=== PATIENT | male | born 1965 | race Caucasian/White ===

== ENCOUNTER → 2017-01-17 | Outpatient (REF) | payer OTHER ==
[~2017-01-17] MED LIST: CELE-19 PO; COUM2.5T11 PO; GABA300C3 PO; LYRI75CA PO; PERCOCET PO; TRAM50TA2 PO; TYLE325T5 PO
[2017-01-17 21:33] LABS: ALBUMIN 3.5 GM/DL (3.2-5.2); ALBUMIN/GLOBULIN RATIO 0.97 (1.00-1.93); ALKALINE PHOSPHATASE 139 U/L (45-117); ALT/SGPT 35 U/L (12-78); ANION GAP 9 MEQ/L (8-16); AST/SGOT 10 U/L (15-37); BILIRUBIN,TOTAL 0.4 MG/DL (0.2-1.0); BLOOD UREA NITROGEN 15 MG/DL (7-18); CALCIUM LEVEL 8.3 MG/DL (8.5-10.1); CARBON DIOXIDE LEVEL 32 MEQ/L (21-32); CHLORIDE LEVEL 102 MEQ/L (98-107); CHOLESTEROL LEVEL 136 MG/DL (<200); CREATININE FOR GFR 0.96 MG/DL (0.70-1.30); GLOMERULAR FILTRATION RATE > 60.0 (>56); GLUCOSE, FASTING 142 MG/DL (70-105); POTASSIUM SERUM 4.4 MEQ/L (3.5-5.1); SODIUM LEVEL 143 MEQ/L (136-145); TOTAL PROTEIN 7.1 GM/DL (6.4-8.2); TRIGLYCERIDES LEVEL 108 MG/DL (<150)
== END ==
LOC: M SFHCADAM 14:13
PROVIDERS: ATTEND Physician Assistant Medical
DX: E78.2 Mixed hyperlipidemia (principal); R73.01 Impaired fasting glucose

== ENCOUNTER → 2017-03-27 | Outpatient (CLI) | payer OTHER ==
[~2017-03-27] MED LIST changes: +GABA-282 PO; -GABA300C3 PO
--- NOTE | 2017-03-27 09:16 | REP ---
Clinical: Trauma. Puncture wound. Technique: AP, lateral, bilateral oblique views of the right wrist. Findings: Given history states site of wound along the posterior aspect below the fifth metacarpal head. The carpal bones are intact and there is no evidence for acute fracture or dislocation. No foreign body identified. Incidental note is made of a 3 mm corticated calcification in the subcutaneous tissues overlying the distal ulna which is unrelated and appears chronic/insignificant. Impression: No acute fracture dislocation. No obvious foreign body. Signed by Brent Melo MD 03/27/2017 09:08 A
== END ==
LOC: M ADAMS 08:24
PROVIDERS: ATTEND Family Medicine
DX: S61.531A Puncture wound without foreign body of right wrist, initial encounter (principal); X58.XXXA Exposure to other specified factors, initial encounter; Y92.89 Other specified places as the place of occurrence of the external cause; Y93.89 Activity, other specified; Y99.8 Other external cause status
CPT/HCPCS: 73110; G0463

== ENCOUNTER → 2017-11-18 | Outpatient (REF) | payer OTHER ==
[2017-11-18 12:17] LABS: BASO % 0.4 % (0.0-1.0); EOS # 0.1 10^3/uL (0.0-0.50); EOS % 0.7 % (0.0-3.0); HEMATOCRIT 42.8 % (42.0-52.0); HEMOGLOBIN 14.4 g/dl (14.0-18.0); IMMATURE GRANULOCYTE # 0.1 10^3/uL (0-0); IMMATURE GRANULOCYTE % 0.5 % (0-0); LYMPH # 2.3 10^3/uL (1.5-4.5); LYMPH % 23.4 % (24.0-44.0); MEAN CORPUSCULAR HEMOGLOBIN 30.8 pg (27.0-33.0); MEAN CORPUSCULAR HGB CONC 33.6 g/dl (32.0-36.5); MEAN CORPUSCULAR VOLUME 91.5 fl (80.0-96.0); MONO # 0.6 10^3/uL (0.0-0.8); MONO % 5.9 % (0.0-5.0); NEUTROPHILS # 6.8 10^3/uL (1.8-7.7); NEUTROPHILS % 69.1 % (36.0-66.0); PLATELET COUNT, AUTOMATED 300 10^3/uL (150-450); RED BLOOD COUNT 4.68 10^6/uL (4.30-6.10); RED CELL DISTRIBUTION WIDTH 12.4 % (11.5-14.5); WHITE BLOOD COUNT 9.9 10^3/uL (4.0-10.0)
[2017-11-18 12:36] LABS: ESTIMATED AVERAGE GLUCOSE 140 MG/DL (60-110); HEMOGLOBIN A1c 6.5 %
[2017-11-18 12:38] LABS: ALBUMIN 3.5 GM/DL (3.2-5.2); ALBUMIN/GLOBULIN RATIO 1.03 (1.00-1.93); ALKALINE PHOSPHATASE 130 U/L (45-117); ALT/SGPT 50 U/L (12-78); ANION GAP 8 MEQ/L (8-16); AST/SGOT 19 U/L (7-37); BILIRUBIN,TOTAL 0.5 MG/DL (0.2-1.0); BLOOD UREA NITROGEN 13 MG/DL (7-18); CALCIUM LEVEL 8.5 MG/DL (8.5-10.1); CARBON DIOXIDE LEVEL 29 MEQ/L (21-32); CHLORIDE LEVEL 102 MEQ/L (98-107); CHOLESTEROL LEVEL 133 MG/DL (<200); CHOLESTEROL RISK RATIO 3.594 (<5); CREATININE FOR GFR 0.92 MG/DL (0.70-1.30); GLOMERULAR FILTRATION RATE > 60.0 (>56); GLUCOSE, FASTING 99 MG/DL (70-105); HDL CHOLESTEROL 37 MG/DL (>40); LDL CHOLESTEROL 79.4 MG/DL (<100); NON-HDL-C 96 MG/DL; POTASSIUM SERUM 4.7 MEQ/L (3.5-5.1); SODIUM LEVEL 139 MEQ/L (136-145); TOTAL PROTEIN 6.9 GM/DL (6.4-8.2); TRIGLYCERIDES LEVEL 83 MG/DL (<150)
[2017-11-18 12:45] LABS: TOTAL 25(OH) VITAMIN D 21.2 NG/ML (30.0-100.0)
== END ==
LOC: M SFHCADAM 09:11
DX: E78.2 Mixed hyperlipidemia (principal); R73.01 Impaired fasting glucose
CPT/HCPCS: 84443

== ENCOUNTER → 2018-06-09 | Outpatient (REF) | payer OTHER ==
[2018-06-09 12:49] LABS: BASO % 0.4 % (0.0-1.0); EOS # 0.1 10^3/uL (0.0-0.50); EOS % 1.4 % (0.0-3.0); HEMATOCRIT 41.1 % (42.0-52.0); HEMOGLOBIN 13.9 g/dl (13.5-17.5); IMMATURE GRANULOCYTE % 0.4 % (0-3.0); LYMPH # 2.7 10^3/uL (1.5-4.5); LYMPH % 30.4 % (24.0-44.0); MEAN CORPUSCULAR HEMOGLOBIN 31.3 pg (27.0-33.0); MEAN CORPUSCULAR HGB CONC 33.8 g/dl (32.0-36.5); MEAN CORPUSCULAR VOLUME 92.6 fl (80.0-96.0); MONO # 0.6 10^3/uL (0.0-0.8); MONO % 7.1 % (0.0-5.0); NEUTROPHILS # 5.4 10^3/uL (1.8-7.7); NEUTROPHILS % 60.3 % (36.0-66.0); PLATELET COUNT, AUTOMATED 273 10^3/uL (150-450); RED BLOOD COUNT 4.44 10^6/uL (4.30-6.10); RED CELL DISTRIBUTION WIDTH 12.4 % (11.5-14.5)
[2018-06-09 13:16] LABS: TOTAL 25(OH) VITAMIN D 22.1 NG/ML (30.0-100.0)
[2018-06-09 13:25] LABS: ALBUMIN 3.3 GM/DL (3.2-5.2); ALBUMIN/GLOBULIN RATIO 0.97 (1.00-1.93); ALKALINE PHOSPHATASE 123 U/L (45-117); ALT/SGPT 38 U/L (12-78); ANION GAP 8 MEQ/L (8-16); AST/SGOT 12 U/L (7-37); BILIRUBIN,TOTAL 0.3 MG/DL (0.2-1.0); BLOOD UREA NITROGEN 11 MG/DL (7-18); CALCIUM LEVEL 8.6 MG/DL (8.5-10.1); CARBON DIOXIDE LEVEL 30 MEQ/L (21-32); CHLORIDE LEVEL 105 MEQ/L (98-107); CHOLESTEROL LEVEL 138 MG/DL (<200); CHOLESTEROL RISK RATIO 4.181 (<5); GLOMERULAR FILTRATION RATE > 60.0 (>56); GLUCOSE, FASTING 116 MG/DL (70-100); HDL CHOLESTEROL 33 MG/DL (>40); LDL CHOLESTEROL 80.4 MG/DL (<100); NON-HDL-C 105 MG/DL; POTASSIUM SERUM 4.4 MEQ/L (3.5-5.1); SODIUM LEVEL 143 MEQ/L (136-145); TOTAL PROTEIN 6.7 GM/DL (6.4-8.2); TRIGLYCERIDES LEVEL 123 MG/DL (<150)
[2018-06-09 13:44] LABS: CREATININE, URINE 95.9 MG/DL; MALB URINE SIEMENS < 5.0 MG/L; MAU/CREAT RATIO 5.2 MCG/MG (0.0-30.0)
[2018-06-09 13:53] LABS: ESTIMATED AVERAGE GLUCOSE 143 MG/DL (60-110); HEMOGLOBIN A1c 6.6 %
== END ==
LOC: M SFHCADAM 09:41
DX: E66.01 Morbid (severe) obesity due to excess calories (principal); F17.200 Nicotine dependence, unspecified, uncomplicated; E78.2 Mixed hyperlipidemia; R60.1 Generalized edema; Z68.44 Body mass index [BMI] 60.0-69.9, adult; Z79.899 Other long term (current) drug therapy
CPT/HCPCS: 84443

== ENCOUNTER → 2019-04-26 | Outpatient (REF) | payer MEDICARE ==
[~2019-04-26] MED LIST changes: -CELE-19 PO; +CELE1CAP4 PO; -COUM2.5T11 PO; +COUM2.5T17 PO; -GABA-282 PO; +GABA-843 PO
[2019-04-26 13:21] LABS: BASO % 0.4 % (0.0-1.0); EOS # 0.1 10^3/uL (0.0-0.50); EOS % 1.4 % (0.0-3.0); HEMATOCRIT 42.9 % (42.0-52.0); HEMOGLOBIN 13.9 g/dl (13.5-17.5); LYMPH # 2.8 10^3/uL (1.5-4.5); LYMPH % 28.3 % (24.0-44.0); MEAN CORPUSCULAR HEMOGLOBIN 30.9 pg (27.0-33.0); MEAN CORPUSCULAR HGB CONC 32.4 g/dl (32.0-36.5); MEAN CORPUSCULAR VOLUME 95.3 fl (80.0-96.0); MONO # 0.6 10^3/uL (0.0-0.8); MONO % 5.7 % (0.0-5.0); NEUTROPHILS # 6.4 10^3/uL (1.8-7.7); NEUTROPHILS % 63.8 % (36.0-66.0); PLATELET COUNT, AUTOMATED 298 10^3/uL (150-450)
[2019-04-26 13:31] LABS: ALBUMIN 3.3 GM/DL (3.2-5.2); ALT/SGPT 35 U/L (12-78); BILIRUBIN,TOTAL 0.3 MG/DL (0.2-1.0); BLOOD UREA NITROGEN 13 MG/DL (7-18); CALCIUM LEVEL 8.7 MG/DL (8.5-10.1); CARBON DIOXIDE LEVEL 29 MEQ/L (21-32); CHLORIDE LEVEL 108 MEQ/L (98-107); CHOLESTEROL LEVEL 118 MG/DL (<200); CHOLESTEROL RISK RATIO 3.575 (<5); CREATININE FOR GFR 0.96 MG/DL (0.70-1.30); GLOMERULAR FILTRATION RATE > 60.0 (>56); GLUCOSE, FASTING 171 MG/DL (70-100); HDL CHOLESTEROL 33 MG/DL (>40); LDL CHOLESTEROL 60 MG/DL (<100); NON-HDL-C 85 MG/DL; POTASSIUM SERUM 4.9 MEQ/L (3.5-5.1); SODIUM LEVEL 142 MEQ/L (136-145); TOTAL PROTEIN 6.8 GM/DL (6.4-8.2); TRIGLYCERIDES LEVEL 127 MG/DL (<150)
[2019-04-26 14:22] LABS: MALB URINE SIEMENS 20.1 MG/L; MAU/CREAT RATIO 5.4 MCG/MG (0.0-30.0)
[2019-04-26 14:41] LABS: HEMOGLOBIN A1c 6.2 %
== END ==
LOC: M SFHCADAM 09:06
PROVIDERS: ATTEND Physician Assistant Medical
DX: E11.9 Type 2 diabetes mellitus without complications (principal); E78.2 Mixed hyperlipidemia

== ENCOUNTER → 2019-10-25 | Outpatient (REF) | payer MEDICARE ==
[2019-10-25 13:28] LABS: MALB URINE SIEMENS < 5.0 MG/L; MAU/CREAT RATIO 3.2 MCG/MG (0.0-30.0)
[2019-10-25 13:32] LABS: ALBUMIN 3.4 GM/DL (3.2-5.2); ALT/SGPT 61 U/L (12-78); BILIRUBIN,TOTAL 0.5 MG/DL (0.2-1.0); BLOOD UREA NITROGEN 9 MG/DL (7-18); CALCIUM LEVEL 8.8 MG/DL (8.5-10.1); CARBON DIOXIDE LEVEL 29 MEQ/L (21-32); CHLORIDE LEVEL 106 MEQ/L (98-107); CHOLESTEROL LEVEL 204 MG/DL (<200); CHOLESTEROL RISK RATIO 6.375 (<5); CREATININE FOR GFR 0.96 MG/DL (0.70-1.30); GLOMERULAR FILTRATION RATE > 60.0 (>56); GLUCOSE, FASTING 93 MG/DL (70-100); HDL CHOLESTEROL 32 MG/DL (>40); LDL CHOLESTEROL 152 MG/DL (<100); NON-HDL-C 172 MG/DL; POTASSIUM SERUM 4.7 MEQ/L (3.5-5.1); SODIUM LEVEL 142 MEQ/L (136-145); TOTAL PROTEIN 6.7 GM/DL (6.4-8.2); TRIGLYCERIDES LEVEL 101 MG/DL (<150)
[2019-10-25 13:49] LABS: HEMOGLOBIN A1c 5.7 %
== END ==
LOC: M SFHCADAM 09:08
PROVIDERS: ATTEND Physician Assistant Medical
DX: E11.9 Type 2 diabetes mellitus without complications (principal); E66.01 Morbid (severe) obesity due to excess calories; E78.2 Mixed hyperlipidemia
CPT/HCPCS: 80053; 80061; 82043; 83036; 84443; G0463

== ENCOUNTER 2019-12-15 13:35 | Inpatient (IN) | payer MEDICARE ==
[~2019-12-15] VITALS: Ht 180.3 cm; Wt 174.8 kg
[~2019-12-15 13:35] MED LIST changes: -GABA600T4 PO; -IBUP200C28 PO
[2019-12-15] MEDS ORDERED: GLUCAGON FOR INJ 1 MG VIAL (J1610) SC PRN (13:45)
[2019-12-15] MEDS ORDERED: ALBUTEROL 90 MCG/ACT 8GM HFA INHALER INH PRN (13:45)
[2019-12-15] MEDS ORDERED: GLUCOSE 4 GM CHEW TABLET PO PRN (13:45)
[2019-12-15] MEDS ORDERED: DEXTROSE 50% 50 ML SYRINGE IV PRN (13:45)
[2019-12-15 14:00] VITALS: BP 160/93
--- NOTE | 2019-12-15 14:08 | HPE ---
DATE OF ADMISSION: 12/15/2019 PRINCIPAL DIAGNOSIS: Extensive deep vein thrombosis (DVT) right lower extremity. HISTORY: Dewayne Chawla is a 54-year-old with a past history of a DVT of his right leg, 06/24. He was supposed to be taking Xarelto for fdc anticoagulation. He stopped taking this as well as all of his other medications in September. He was objecting to the cost of these and just stopped taking them. He noticed a week ago his right lower extremity was swollen, red and tender, particularly distally. He was not short of breath. Denied any hemoptysis. He was worked in today in the office and ultrasound confirmed extensive DVT with complete occlusion of the deep veins from popliteal to common femoral vein, nonocclusive thrombus in the profunda femoral vein. Due to the patient's history of noncompliance and the social factors involved, I think it would be safest to admit this patient to start anticoagulation in a supervised setting and have patient and family services (PFS) work with him on his financial limitations. PAST MEDICAL HISTORY: Shows: Tobacco abuse. He is still able to afford his cigarettes. He is morbidly obese with a BMI of 56. He has a history of hypertension. Degenerative disc disease with spinal stenosis at L4-5 and central disc protrusion at L4-5. He had DVT of his right lower extremity 06/24. History of hyperlipidemia. Type 2 diabetes. Asthma. Chronic venous insufficiency. ALLERGIES: 1. PENICILLIN. SURGICAL HISTORY: Dental extractions. Left knee replacement 08/23. HOSPITALIZATIONS: Cellulitis right knee 1999. FAMILY HISTORY: Father of "bone cancer." Probably metastatic prostate cancer, he had Crohn's disease. Mother has type 2 diabetes. His sister has type 2 diabetes. SOCIAL HISTORY: He smokes a pack per day. No exercise program. Moderate alcohol intake. He used to be a whitten, now he is disabled. REVIEW OF SYSTEMS: No epistaxis, rectal bleeding, urinary bleeding, shortness of breath (SOB), cough, wheeze, hemoptysis, fever, chills, night sweats. PHYSICAL EXAMINATION: 392 pounds, body mass index (BMI) 56, 144/80, pulse 96, respiratory rate 18, 98% oxygen saturation. GENERAL APPEARANCE: Morbidly obese, sitting up in no distress. Pupils equal, round and reactive to light. Tympanic membranes and oropharynx benign. Neck no masses. Lungs clear. Heart regular rhythm without murmur. Abdomen obese, nontender, no masses. Extremities without clubbing, cyanosis, or edema. His left lower extremity has venous stasis, trace edema. Right lower extremity has 1+ peripheral edema, tender to palpate with an erythematous, swollen area right medial lower leg. Distal pulses are palpable. LABS: None ordered yet. IMAGING: Ultrasound of the left showed complete occlusion of the deep veins from common femoral to the popliteal vein. IMPRESSION: Recurrent DVT. PLAN: 1. The patient's noncompliance puts him at risk of outpatient treatment. He will be admitted to the medical floor, started on Lovenox (I will confirm with pharmacy the dosing), and warfarin. Warfarin will be less expensive for him than Xarelto, Eliquis, etc. Patient and family services (PFS) will need to get involved and help him with his financial constraints. Risks of untreated medical conditions, including DVT, as well as his diabetes and hyperlipidemia were discussed with the patient in the office today. 2. Type 2 diabetes. He has not taken his medicines in 3 months. Hemoglobin A1c ordered. Sliding scale insulin with coverage. Restart metformin once we assure what his renal function is like. 3. Hyperlipidemia. Restart atorvastatin 40 mg daily. Importance of compliance has been discussed. 4. History of asthma. Albuterol on an as needed basis has been ordered. 5. Spinal stenosis. Continue his gabapentin 600 mg three times a day. 6. Morbid obesity. This complicates his medical care and increases risk of recurrence of the DVT as well as complications from this.
[2019-12-15 14:42] LABS: HEMATOCRIT 44.2 % (42.0-52.0); HEMOGLOBIN 14.4 g/dl (13.5-17.5); MEAN CORPUSCULAR HEMOGLOBIN 31.2 pg (27.0-33.0); MEAN CORPUSCULAR HGB CONC 32.6 g/dl (32.0-36.5); MEAN CORPUSCULAR VOLUME 95.7 fl (80.0-96.0); PLATELET COUNT, AUTOMATED 276 10^3/uL (150-450); RED BLOOD COUNT 4.62 10^6/uL (4.30-6.10); WHITE BLOOD COUNT 8.4 10^3/uL (4.0-10.0)
[2019-12-15 14:52] LABS: INR 1.03; PROTHROMBIN TIME 13.2 SECONDS (11.8-14.0)
[2019-12-15 14:53] LABS: PARTIAL THROMBOPLASTIN TIME 30.2 SECONDS (25.0-38.4)
[2019-12-15] MEDS: ENOXAPARIN 150 MG/ML SYR (J1650) SC SCH (15:02)
[2019-12-15 15:06] LABS: ALBUMIN 3.2 GM/DL (3.2-5.2); ALT/SGPT 32 U/L (12-78); BILIRUBIN,TOTAL 0.4 MG/DL (0.2-1.0); BLOOD UREA NITROGEN 7 MG/DL (7-18); CALCIUM LEVEL 8.5 MG/DL (8.5-10.1); CARBON DIOXIDE LEVEL 29 MEQ/L (21-32); CHLORIDE LEVEL 106 MEQ/L (98-107); CREATININE FOR GFR 0.87 MG/DL (0.70-1.30); GLOMERULAR FILTRATION RATE > 60.0 (>56); GLUCOSE, FASTING 86 MG/DL (70-100); POTASSIUM SERUM 4.2 MEQ/L (3.5-5.1); SODIUM LEVEL 141 MEQ/L (136-145); TOTAL PROTEIN 6.5 GM/DL (6.4-8.2)
[2019-12-15] MEDS ORDERED: GABA600T4 PO ×2 (15:24)
[2019-12-15] MEDS ORDERED: IBUP200C28 PO (15:24)
[2019-12-15] MEDS: GABAPENTIN 300 MG CAP PO SCH ×2 (16:30→20:17)
[2019-12-15] MEDS: HumaLOG INSULIN (NovoLOG) PER UNIT SC SCH ×2 (16:40→20:17)
[2019-12-15 16:43] LABS: CHOLESTEROL LEVEL 227 MG/DL (<200); CHOLESTEROL RISK RATIO 6.485 (<5); HDL CHOLESTEROL 35 MG/DL (>40); LDL CHOLESTEROL 156 MG/DL (<100); NON-HDL-C 192 MG/DL; TRIGLYCERIDES LEVEL 179 MG/DL (<150)
[2019-12-15] MEDS ORDERED: WARFARIN SOD 5 MG TAB PO ONE (17:00)
[2019-12-15 17:03] LABS: HEMOGLOBIN A1c 5.8 %
[2019-12-15] MEDS: ATORVASTATIN 20 MG TAB PO SCH (20:17)
[2019-12-15 22:00] VITALS: BP 143/94
[2019-12-16] MEDS: ENOXAPARIN 150 MG/ML SYR (J1650) SC SCH ×2 (04:11→15:14)
[2019-12-16 06:00] VITALS: BP 114/68
[2019-12-16 06:28] LABS: HEMATOCRIT 41.4 % (42.0-52.0); HEMOGLOBIN 13.7 g/dl (13.5-17.5); MEAN CORPUSCULAR HEMOGLOBIN 31.6 pg (27.0-33.0); MEAN CORPUSCULAR HGB CONC 33.1 g/dl (32.0-36.5); MEAN CORPUSCULAR VOLUME 95.4 fl (80.0-96.0); PLATELET COUNT, AUTOMATED 265 10^3/uL (150-450); RED BLOOD COUNT 4.34 10^6/uL (4.30-6.10); WHITE BLOOD COUNT 7.2 10^3/uL (4.0-10.0)
[2019-12-16 06:36] LABS: INR 1.13; PROTHROMBIN TIME 14.2 SECONDS (11.8-14.0)
[2019-12-16 06:51] LABS: BLOOD UREA NITROGEN 9 MG/DL (7-18); CALCIUM LEVEL 8.5 MG/DL (8.5-10.1); CARBON DIOXIDE LEVEL 28 MEQ/L (21-32); CHLORIDE LEVEL 107 MEQ/L (98-107); CREATININE FOR GFR 0.92 MG/DL (0.70-1.30); GLOMERULAR FILTRATION RATE > 60.0 (>56); GLUCOSE, FASTING 95 MG/DL (70-100); POTASSIUM SERUM 3.8 MEQ/L (3.5-5.1); SODIUM LEVEL 141 MEQ/L (136-145)
[2019-12-16] MEDS: HumaLOG INSULIN (NovoLOG) PER UNIT SC SCH ×4 (07:30→21:00)
--- NOTE | 2019-12-16 08:50 | IPNPDOC ---
Subjective Date Seen The patient was seen on 12/16/19. Subjective Chief Complaint/HPI DVT RLE Events since last encounter Directed admit from PCP office. Has RLE occlusive DVT. patient states pain is manageable. He is currently on Warfarin. INR 1.13. c/o LLE swelling and pain. Constitutional: Denies: Chills, Fever, Night Sweats Pulmonary: Denies: Dyspnea, Cough Cardiovascular: Denies: Chest Pain, Palpitations, Orthopnea, Paroxysmal Noc. Dyspnea, Lt Headedness Gastrointestinal: Denies: Nausea, Vomiting, Abdominal Pain, Diarrhea, Constipation Psych: Reports: Mood Normal; Denies: Depression, Memory Issues Objective Physical Examination General Exam: Positive: Alert, Cooperative, No Acute Distress Neck Exam: Positive: Supple; Negative: JVD, thyromegaly Chest Exam: Positive: Wheezing Heart Exam: Positive: Rate Normal, Regular Rhythm, Normal S1, Normal S2; Negative: Murmurs, Rubs Abdomen Exam: Positive: Normal bowel sounds, Soft; Negative: Tenderness, Hepatospenomegaly Extremity Exam: Positive: Edema (BLE) Psych Exam: Positive: Mental status NL, Mood NL, Oriented x 3 Assessment /Plan Problems (1) Left knee DJD Status: Acute (2) Recurrent deep vein thrombosis (DVT) of right lower extremity Status: Acute Problem Text: Placed on Warfarin due to cost of Xarelto and patient's non-comp liance. INR 1.13. c/o LLE swelling. will eval US. (3) HTN (hypertension) Status: Chronic Response to Treatment: Stable Problem Text: BP stable. (4) Diabetes mellitus Status: Chronic Problem Text: RISS (5) Spinal stenosis Status: Chronic Response to Treatment: Stable Problem Text: continue Gabapentin (6) Morbidly obese Status: Chronic (7) Hyperlipidemia Status: Chronic Problem Text: continue atorvastatin (8) Asthma Status: Chronic Problem Text: continue albuterol prn. mild wheezing today. patient continues to smoke Plan/VTE VTE Prophylaxis Ordered?: Yes VS, I&O, 24H, Fishbone Vital Signs/I&O Vital Signs Date Time Temp Pulse Resp B/P (MAP) Pulse Ox O2 Delivery O2 Flow Rate FiO2 12/16/19 06:00 98.5 68 20 114/68 (83) 97 Room Air I&O- Last 24 Hours up to 6 AM 12/16/19 06:00 Intake Total 3120 ml Balance 3120 ml Laboratory Data 24H LABS Laboratory Tests 2 12/15/19 14:24: Nucleated Red Blood Cells % (auto) 0.0, Prothrombin Time 13.2, Prothromb Time International Ratio 1.03, Activated Partial Thromboplast Time 30.2, Anion Gap 6L, Glomerular Filtration Rate > 60.0, Estimated Mean Plasma Glucose 120H, Hemoglobin A1c 5.8, Calcium Level 8.5, Total Bilirubin 0.4, Aspartate Amino Transf (AST/SGOT) 14, Alanine Aminotransferase (ALT/SGPT) 32, Alkaline Phosphatase 122H, Total Protein 6.5, Albumin 3.2, Albumin/Globulin Ratio 0.97L, Triglycerides Level 179H, Total Cholesterol 227H, LDL Cholesterol 156H, Non-HDL Cholesterol (LDL + VLDL) 192, Total HDL Cholesterol 35L, Cholesterol/HDL Ratio 6.485H 12/15/19 16:21: Bedside Glucose (Misc Panel) 83 12/15/19 19:46: Bedside Glucose (Misc Panel) 126H 12/16/19 05:51: Nucleated Red Blood Cells % (auto) 0.0, Prothrombin Time 14.2H, Prothromb Time International Ratio 1.13, Anion Gap 6L, Glomerular Filtration Rate > 60.0, Calcium Level 8.5 CBC/BMP Laboratory Tests 12/15/19 14:24 12/16/19 05:51 Sujata Parrish [employer] Dec 16, 2019 08:50
[2019-12-16] MEDS ORDERED: FLUBLOK(EGG FREE)(QUAD)INFLUENZA VACC 0.5ML SYRINGE (90682)18YRS&OLDER IM ONE (09:00)
[2019-12-16] MEDS: GABAPENTIN 300 MG CAP PO SCH ×3 (09:40→21:13)
--- NOTE | 2019-12-16 13:27 | REP ---
Duplex extremity venous ultrasound: Left lower extremity. History: Clot in the right leg. Rule out DVT on the left. Findings: The deep veins are anechoic and fully compressible from the groin to the popliteal fossa in the left lower extremity. Color flow imaging is homogeneous. Spectral Doppler interrogation demonstrates intact respiratory variation in flow and normal manual augmentation of flow. There is no evidence of deep vein thrombosis. Impression: Negative left lower extremity duplex venous ultrasound. No evidence of deep vein thrombosis. Electronically Signed by Papa Fry MD 12/16/2019 01:19 P
[2019-12-16 14:00] VITALS: BP 112/61
[2019-12-16] MEDS: WARFARIN SOD 5 MG TAB PO SCH (18:17)
[2019-12-16] MEDS: ATORVASTATIN 20 MG TAB PO SCH (21:13)
[2019-12-16 22:00] VITALS: BP 112/63
[2019-12-17] MEDS: ENOXAPARIN 150 MG/ML SYR (J1650) SC SCH ×2 (03:28→16:06)
[2019-12-17 06:00] VITALS: BP 109/64
[2019-12-17 06:59] LABS: INR 1.47; PROTHROMBIN TIME 17.6 SECONDS (11.8-14.0)
[2019-12-17] MEDS: HumaLOG INSULIN (NovoLOG) PER UNIT SC SCH ×4 (07:30→21:00)
[2019-12-17] MEDS: GABAPENTIN 300 MG CAP PO SCH ×3 (08:01→21:11)
--- NOTE | 2019-12-17 10:37 | IPNPDOC ---
Subjective Date Seen The patient was seen on 12/17/19. Subjective Chief Complaint/HPI Pt this morning is dressed and sitting on the couch in his room. He is irritable and rattling his keys. 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 He states that for a long time he took his Xarelto every other day and did fine with this, he will do this again if he is DC on Xarelto again. We spoke with his insurance co and it was reported to me that his out of pocket expence for Xaretlo will be $110 per month after her meets his deductable for meds, so his first fill will be over $450. He states that he sold a car so that he can pay for this and then in April and washer and dryer will be paid off and he will be able to afford it again in April. Kirsty from [facility] also reports that he will be eligible for pt assistance from [facility] based on his income therefore outpt copays will be covered. Therefore Coumadin as an outpt is a much cheaper option for him. We talked about this and the need for compliance with routine PT, he states that he will do whatever will cost him less, but he isn't pleased to learn that he will need to stay inpt until his INR is above 2, if he is DC home with LOvenox he will face the same financial contraints due to his deductible. He told CDT last night that he had planned to leave the hospital this morning and then come back to go plow, he didn't do this. General: Denies: Fatigue Constitutional: Denies: Chills, Fever Pulmonary: Denies: Dyspnea, Cough Cardiovascular: Denies: Chest Pain, Palpitations Gastrointestinal: Denies: Nausea, Vomiting Psych: Denies: Mood Normal Objective Physical Examination General Exam: Positive: Alert, Cooperative, No Acute Distress Neck Exam: Positive: Supple; Negative: JVD, thyromegaly Chest Exam: Positive: Wheezing Heart Exam: Positive: Rate Normal, Regular Rhythm, Normal S1, Normal S2; Negative: Murmurs, Rubs Abdomen Exam: Positive: Normal bowel sounds, Soft; Negative: Tenderness, Hepatospenomegaly Extremity Exam: Positive: Edema (BLE) Psych Exam: Positive: Mental status NL, Mood NL, Oriented x 3 Assessment /Plan Problems (1) Recurrent deep vein thrombosis (DVT) of right lower extremity Status: Acute Problem Text: 12/17 Pt with very poor insight into prognosis and potential for complication assoc with his current condition, he makes states like "you are ref using to provide care", "you are holding me here against my will" He has a h/o of noncompliance with medication and failure to report this to the office. He admits that he will only take his Xarelto every other day due lessen the cost of this so therefore I do not believe this is his best option, I presented this to him. I recommended staying in the hospital until his INR >2, then dc home on PO warfarin, he is not pleased but for now is agreeable. I foresee further issues with compliance and therefore complications regarding this due to his noncompliance and poor insight. 12/16 Placed on Warfarin due to cost of Xarelto and patient's non-compliance. INR 1.13. c/o LLE swelling. will eval US. (2) Left knee DJD Status: Acute (3) HTN (hypertension) Status: Chronic Response to Treatment: Stable Problem Text: BP stable. (4) Diabetes mellitus Status: Chronic Problem Text: RISS (5) Spinal stenosis Status: Chronic Response to Treatment: Stable Problem Text: continue Gabapentin (6) Morbidly obese Status: Chronic (7) Hyperlipidemia Status: Chronic Problem Text: continue atorvastatin (8) Asthma Status: Chronic Problem Text: continue albuterol prn. mild wheezing today. patient continues to smoke Plan/VTE VTE Prophylaxis Ordered?: Yes VS, I&O, 24H, Fishbone Vital Signs/I&O Vital Signs Date Time Temp Pulse Resp B/P (MAP) Pulse Ox O2 Delivery O2 Flow Rate FiO2 12/17/19 06:00 98.6 70 20 109/64 (79) 96 Room Air I&O- Last 24 Hours up to 6 AM 12/17/19 05:59 Intake Total 3360 ml Balance 3360 ml Laboratory Data 24H LABS Laboratory Tests 2 12/16/19 11:44: Bedside Glucose (Misc Panel) 90 12/16/19 16:40: Bedside Glucose (Misc Panel) 122H 12/16/19 20:16: Bedside Glucose (Misc Panel) 137H 12/17/19 06:21: Prothrombin Time 17.6H, Prothromb Time International Ratio 1.47 2/7/20 07:30: Bedside Glucose (Misc Panel) 113H JUNIOR SAINZ PA-C Dec 17, 2019 10:37
[2019-12-17 14:00] VITALS: BP 111/65
[2019-12-17] MEDS: WARFARIN SOD 5 MG TAB PO SCH (16:06)
[2019-12-17] MEDS: ATORVASTATIN 20 MG TAB PO SCH (21:11)
[2019-12-17 22:00] VITALS: BP 109/66
[2019-12-18 06:00] VITALS: BP 112/66
[2019-12-18] MEDS: ENOXAPARIN 150 MG/ML SYR (J1650) SC SCH ×2 (06:13→17:00)
[2019-12-18 06:59] LABS: INR 1.56; PROTHROMBIN TIME 18.4 SECONDS (11.8-14.0)
[2019-12-18] MEDS: HumaLOG INSULIN (NovoLOG) PER UNIT SC SCH ×4 (07:30→21:00)
[2019-12-18] MEDS: GABAPENTIN 300 MG CAP PO SCH ×3 (08:06→21:09)
[2019-12-18 14:00] VITALS: BP 132/77
--- NOTE | 2019-12-18 15:09 | IPNPDOC ---
Subjective Date Seen The patient was seen on 12/18/19. Subjective Chief Complaint/HPI Mr. Chawla really wants to go home today. He is upset that we didn't titrate his warfarin as an outpatient. He admits he didn't take his Xarelto b/c he couldn't afford it based on his high deductible, but he felt he would be able to afford the Lovenox. He is in some denial with the danger of his situation and the risk of a PE saying "it was three times worse last time and I didn't then." He is agreeable to staying through tomorrow, but then he plans on going home with or without a discharge. General: Reports: Normal Appetite Pulmonary: Denies: Dyspnea, Cough, Pleuritic Chest Pain Cardiovascular: Reports: Edema (R>L); Denies: Chest Pain, Palpitations Objective Physical Examination General Exam: Positive: Alert, No Acute Distress (sitting in a chair eating a pizza when I entered the room); Negative: Cooperative Eye Exam: Positive: Conjunctiva & lids normal; Negative: Sclera icteric ENT Exam: Positive: Mucous membr. moist/pink Neck Exam: Positive: Supple; Negative: Lymphadenopathy Chest Exam: Positive: Clear to auscultation, Diminished Heart Exam: Positive: Rate Normal, Regular Rhythm, Normal S1, Normal S2; Negative: Murmurs, Rubs Abdomen Exam: Positive: Normal bowel sounds, Soft; Negative: Tenderness, Hepatospenomegaly Extremity Exam: Positive: Edema (BLE, R>L) Psych Exam: Positive: Mental status NL, Oriented x 3 Assessment /Plan Problems (1) Recurrent deep vein thrombosis (DVT) of right lower extremity Status: Acute Problem Specific Plan: Repeat Labs Problem Text: 12/18 - His insight remains poor. Today he was focused on why his warfarin wasn't titrated in the office setting. I reinforced that he will need to come in for regular INR checks once he is discharged. His INR is up to 1.56 from 1.47. I ordered 10mg rather than the 5mg he has been getting tonight to try to expedite his INR becoming therapeutic by tomorrow. Will monitor. 12/17 Pt with very poor insight into prognosis and potential for complication assoc with his current condition, he makes statements like "you are refusing to provide care", "you are holding me here against my will" He has a h/o of noncompliance with medication and failure to report this to the office. He admits that he will only take his Xarelto every other day due lessen the cost of this so therefore I do not believe this is his best option, I presented this to him. I recommended staying in the hospital until his INR >2, then dc home on PO warfarin, he is not pleased but for now is agreeable. I foresee further issues with compliance and therefore complications regarding this due to his noncompliance and poor insight. 2/6 Placed on Warfarin due to cost of Xarelto and patient's non-compliance. INR 1.13. c/o LLE swelling. will eval US. (2) Diabetes mellitus Status: Chronic Problem Text: He is nearing discharge and his renal function is stable. I will resume his metformin at this time. (3) Cigarette nicotine dependence Status: Chronic Discussed With: Nurse, Patient Problem Text: He is pre-contemplative with regards to change. I suspect that his nicotine dependence is a part of why he is so antsy to get out of here. Patches were offered but he declined. (4) Asthma Status: Chronic Problem Text: Continue albuterol prn. His lungs were clear today. He continues to smoke and has no desire to change. (5) HTN (hypertension) Status: Chronic Response to Treatment: Stable Problem Text: BP stable. (6) Spinal stenosis Status: Chronic Response to Treatment: Stable Problem Text: Continue Gabapentin (7) Morbidly obese Status: Chronic Response to Treatment: Progressing Problem Text: This complicates most of his medical conditions certainly including the DVTs currently admitted for. (8) Hyperlipidemia Status: Chronic Problem Text: continue atorvastatin (9) Left knee DJD Status: Acute Plan/VTE VTE Prophylaxis Ordered?: Yes (Lovenox, warfarin) Plan Anticipated Discharge: Home VS, I&O, 24H, Fishbone Vital Signs/I&O Vital Signs Date Time Temp Pulse Resp B/P (MAP) Pulse Ox O2 Delivery O2 Flow Rate FiO2 12/18/19 14:00 97.6 67 18 132/77 (95) 95 Room Air I&O- Last 24 Hours up to 6 AM0 12/18/19 05:59 Intake Total 2691 ml Output Total 0 ml Balance 2691 ml Laboratory Data 24H LABS Laboratory Tests 2 12/17/19 16:24: Bedside Glucose (Misc Panel) 87 12/17/19 20:34: Bedside Glucose (Misc Panel) 106H 12/18/19 05:54: Prothrombin Time 18.4H, Prothromb Time International Ratio 1.56 12/18/19 06:01: Bedside Glucose (Misc Panel) 115H 12/18/19 11:50: Bedside Glucose (Misc Panel) 116H Rickey Silverman MD Dec 18, 2019 3:09 pm
[2019-12-18] MEDS ORDERED: WARFARIN SOD 5 MG TAB PO ONE (17:00)
[2019-12-18] MEDS: ATORVASTATIN 20 MG TAB PO SCH (21:09)
[2019-12-18 22:00] VITALS: BP 112/90
[2019-12-19] MEDS: ENOXAPARIN 150 MG/ML SYR (J1650) SC SCH (05:31)
[2019-12-19 06:00] VITALS: BP 112/79
[2019-12-19 07:00] LABS: HEMATOCRIT 39.7 % (42.0-52.0); HEMOGLOBIN 13.1 g/dl (13.5-17.5); MEAN CORPUSCULAR HEMOGLOBIN 31.5 pg (27.0-33.0); MEAN CORPUSCULAR VOLUME 95.4 fl (80.0-96.0); PLATELET COUNT, AUTOMATED 244 10^3/uL (150-450); RED BLOOD COUNT 4.16 10^6/uL (4.30-6.10); WHITE BLOOD COUNT 7.3 10^3/uL (4.0-10.0)
[2019-12-19 07:18] LABS: INR 2.09; PROTHROMBIN TIME 23.3 SECONDS (11.8-14.0)
[2019-12-19] MEDS: HumaLOG INSULIN (NovoLOG) PER UNIT SC SCH (07:30)
[2019-12-19 07:34] LABS: BLOOD UREA NITROGEN 16 MG/DL (7-18); CALCIUM LEVEL 8.3 MG/DL (8.5-10.1); CARBON DIOXIDE LEVEL 30 MEQ/L (21-32); CHLORIDE LEVEL 106 MEQ/L (98-107); CREATININE FOR GFR 0.83 MG/DL (0.70-1.30); GLOMERULAR FILTRATION RATE > 60.0 (>56); GLUCOSE, FASTING 126 MG/DL (70-100); POTASSIUM SERUM 3.7 MEQ/L (3.5-5.1); SODIUM LEVEL 140 MEQ/L (136-145)
[2019-12-19] MEDS ORDERED: metFORMIN (GLUCOPHAGE) 500 MG TAB PO SCH (08:00)
[2019-12-19] MEDS: GABAPENTIN 300 MG CAP PO SCH (08:45)
--- NOTE | 2019-12-19 11:03 | DS.PDOC ---
Discharge Summary General Date of Admission Dec 17, 2019 at 10:28 Date of Discharge 12/19/2019 Primary Care Physician: Anuj Brown MD Attending Physician: Rickey Silverman MD Discharge Summary ADMITTING DIAGNOSES: 1. Recurrent DVT, right lower extremity. 2. Medical noncompliance presenting risks to the patient. 3. Type 2 diabetes, currently not taking any of his medications. 4. Hyperlipidemia, currently not taking his atorvastatin. 5. Asthma. 6. Spinal stenosis. 7. Morbid obesity with a BMI of 53. DISCHARGE DIAGNOSES: 1. Right lower extremity DVT, recurrent. 2. Type 2 diabetes. 3. Hyperlipidemia. 4. Asthma. 5. Tobacco use, ongoing, precontemplative. 6. Spinal stenosis. 7. Morbid obesity. 8. Ongoing concerns for medical noncompliance and financial difficulties. PROCEDURES PERFORMED DURING STAY: None. ADMISSION HISTORY: Mr. Chawla presented to his primary care physician's office with a one-week history of right lower extremity that is swollen and red. He had stopped taking his Xarelto 2-3 months ago because he felt the medications were too expensive. Please see the admission history and physical for the remaining details. HOSPITAL COURSE: Mr Chawla was directly admitted to the hospital after an ultrasound ordered through the office showed that he had a right lower extremity DVT. He had stopped taking his Xarelto 2-3 months before this because of concerns about the cost. Because of this, and other instances of known medical compliance, it was determined that he would be started on warfarin because it is cheaper, however, he would be fully anticoagulated in the controlled setting of the hospital. His INR became therapeutic after total of 20 mg of warfarin were given over three separate doses. I continued him on 5 mg daily. The patient was extensively counseled during the admission on the importance of regular follow- up for management of his INR. He understands that this is a condition of his using the less expensive medication. It should be noted that he threatened to leave the hospital AGAINST MEDICAL ADVICE every single day of this admission, but ultimately did not do so. 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 When this was addressed with him he continues to say "not going to happen, I'm not going to let it happen." He seems to think that he has control over whether a DVT would embolize to his lungs. DISCHARGE CONDITION: Stable. FOLLOW-UP: He was instructed to schedule follow-up with his primary care provider on 12/22 or 12/23 for repeat INR check. He will need to call the office on Friday in order to do this. DIET: Consistent carbohydrates. ACTIVITY: As tolerated. DISCHARGE MEDICATIONS: Please see below. ALLERGIES: Please see below. LABORATORY DATA: Please see below. IMAGING: Bilateral lower extremity DVT duplex venous ultrasounds. DISCHARGE INSTRUCTIONS: 1. Patient needs to call the clinic on Friday to get an appointment for repeat INR check. 2. He was clearly instructed to take 5 mg of warfarin every evening at around 5 PM. ITEMS TO FOLLOWUP ON ON OUTPATIENT: 1. If medical noncompliance continues to be an issue with this patient, I would suggest considering the option of a Edcouch filter. TIME SPENT ON DISCHARGE: About 20 minutes. Vital Signs/I&Os Vital Signs Date Time Temp Pulse Resp B/P (MAP) Pulse Ox O2 Delivery O2 Flow Rate FiO2 12/19/19 06:00 98.4 61 18 112/79 (90) 96 Room Air I&O- Last 24 Hours up to 6 AM 12/19/19 06:00 Intake Total 1780 ml Balance 1780 ml Laboratory Data Labs 24H Laboratory Tests 2 12/18/19 11:50: Bedside Glucose (Misc Panel) 116H 12/18/19 16:47: Bedside Glucose (Misc Panel) 149H 12/18/19 21:12: Bedside Glucose (Misc Panel) 106H 12/19/19 06:10: Nucleated Red Blood Cells % (auto) 0.0, Prothrombin Time 23.3H, Prothromb Time International Ratio 2.09, Anion Gap 4L, Glomerular Filtration Rate > 60.0, Calcium Level 8.3L CBC/BMP Laboratory Tests 12/19/19 06:10 FSBS Laboratory Tests Test 12/18/19 11:50 12/18/19 16:47 12/18/19 21:12 Range/Units Bedside Glucose (Misc Panel) 116 149 106 70-105 MG/DL Discharge Medications Scheduled Atorvastatin Calcium (Atorvastatin Calcium) 20 Mg Tablet, 40 MG PO QHS Gabapentin (Gabapentin) 600 Mg Tablet, 600 MG PO BID, (Reported) Metformin HCl (Glucophage) 500 Mg Tablet, 500 MG PO BID@,18 Warfarin Sodium (Coumadin) 5 Mg Tablet, 5 MG PO DAILY@17 Scheduled PRN Gabapentin (Gabapentin) 600 Mg Tablet, 600 MG PO DAILY PRN for PAIN, (Reported) Allergies Coded Allergies: Penicillins (Verified Allergy, Severe, ANAPHYLAXIS, 12/15/19) Rickey Silverman MD Dec 19, 2019 11:03
[2019-12-19] MEDS ORDERED: GLUC500T PO (11:08)
[2019-12-19] MEDS ORDERED: COUM1TAB17 PO (11:08)
[2019-12-19] MEDS ORDERED: ATOR1TAB21 PO (11:08)
== END 2019-12-19 11:40 | disposition home or self-care (01) | DRG 300 ==
LOC: M MSPAV 13:53 → OBSVTOIN 12-17 10:28 → INTOOBSV 12-17 10:28
PROVIDERS: ADMIT Family Medicine; ATTEND Family Medicine
DX: I82.431 Acute embolism and thrombosis of right popliteal vein (principal); Z68.43 Body mass index [BMI] 50.0-59.9, adult; I82.411 Acute embolism and thrombosis of right femoral vein; Z91.14 Patient's other noncompliance with medication regimen; F17.210 Nicotine dependence, cigarettes, uncomplicated; E66.01 Morbid (severe) obesity due to excess calories; I10 Essential (primary) hypertension; E78.5 Hyperlipidemia, unspecified; E11.9 Type 2 diabetes mellitus without complications; J45.909 Unspecified asthma, uncomplicated; Z88.0 Allergy status to penicillin; Z96.652 Presence of left artificial knee joint; M51.36 Other intervertebral disc degeneration, lumbar region

== ENCOUNTER → 2019-12-15 | Outpatient (CLI) | payer MEDICARE ==
[~2019-12-15] MED LIST changes: +GABA600T4 PO; +IBUP200C28 PO
--- NOTE | 2019-12-15 13:35 | REP ---
Right lower extremity deep vein duplex ultrasound: There is occlusive thrombus extending from the popliteal vein to the common femoral vein. There is nonocclusive thrombus in the profunda femoral vein. Impression: Complete occlusion of the deep veins from the popliteal vein to the common femoral vein. Nonocclusive thrombus in the profunda femoral vein. Electronically Signed by Fede Smith MD 12/15/2019 01:26 P
== END ==
LOC: M RAD 12:28
PROVIDERS: ATTEND Family Medicine
DX: I82.431 Acute embolism and thrombosis of right popliteal vein (principal); I82.411 Acute embolism and thrombosis of right femoral vein; M79.89 Other specified soft tissue disorders

== ENCOUNTER → 2020-05-02 | Outpatient (REF) | payer MEDICARE ==
[~2020-05-02] MED LIST changes: +ATOR1TAB21 PO; +COUM1TAB17 PO; +GABA600T4 PO; +GLUC500T PO; +IBUP200C28 PO
[2020-05-02 16:05] LABS: BASO % 0.5 % (0.0-1.0); EOS # 0.1 10^3/uL (0.0-0.5); EOS % 1.1 % (0.0-3.0); HEMATOCRIT 44.9 % (42.0-52.0); HEMOGLOBIN 14.4 g/dl (13.5-17.5); LYMPH # 2.4 10^3/uL (1.5-5.0); LYMPH % 29.8 % (24.0-44.0); MEAN CORPUSCULAR HGB CONC 32.1 g/dl (32.0-36.5); MEAN CORPUSCULAR VOLUME 96.6 fl (80.0-96.0); MONO # 0.5 10^3/uL (0.0-0.8); MONO % 6.4 % (0.0-5.0); NEUTROPHILS # 4.9 10^3/uL (1.5-8.5); NEUTROPHILS % 61.5 % (36.0-66.0); PLATELET COUNT, AUTOMATED 295 10^3/uL (150-450); RED BLOOD COUNT 4.65 10^6/uL (4.30-6.10)
[2020-05-02 16:26] LABS: HEMOGLOBIN A1c 6.1 %
[2020-05-02 16:36] LABS: ALBUMIN 3.3 GM/DL (3.2-5.2); ALT/SGPT 31 U/L (12-78); BILIRUBIN,TOTAL 0.3 MG/DL (0.2-1.0); BLOOD UREA NITROGEN 16 MG/DL (7-18); CALCIUM LEVEL 8.8 MG/DL (8.5-10.1); CARBON DIOXIDE LEVEL 29 MEQ/L (21-32); CHLORIDE LEVEL 106 MEQ/L (98-107); CHOLESTEROL LEVEL 164 MG/DL (<200); CHOLESTEROL RISK RATIO 4.555 (<5); GLOMERULAR FILTRATION RATE > 60.0 (>56); GLUCOSE, FASTING 121 MG/DL (70-100); HDL CHOLESTEROL 36 MG/DL (>40); LDL CHOLESTEROL 100 MG/DL (<100); NON-HDL-C 128 MG/DL; POTASSIUM SERUM 4.7 MEQ/L (3.5-5.1); SODIUM LEVEL 141 MEQ/L (136-145); TOTAL PROTEIN 6.7 GM/DL (6.4-8.2); TRIGLYCERIDES LEVEL 140 MG/DL (<150)
[2020-05-02 16:41] LABS: CREATININE, URINE 91.3 MG/DL; MALB URINE SIEMENS < 5.0 MG/L; MAU/CREAT RATIO 5.4 MCG/MG (0.0-30.0)
== END ==
LOC: M SFHCADAM 08:19
PROVIDERS: ATTEND Physician Assistant Medical
DX: E11.9 Type 2 diabetes mellitus without complications (principal); E66.01 Morbid (severe) obesity due to excess calories; E78.2 Mixed hyperlipidemia
CPT/HCPCS: 80053; 80061; 82043; 83036; 84443; 85025; G0463

== ENCOUNTER → 2020-10-26 | Outpatient (REF) | payer MEDICARE ==
[2020-10-26 13:16] LABS: INR 1.81; PROTHROMBIN TIME 21.4 SECONDS (12.5-14.3)
[2020-10-26 14:27] LABS: ALBUMIN 3.4 GM/DL (3.2-5.2); ALT/SGPT 40 U/L (12-78); BILIRUBIN,TOTAL 0.3 MG/DL (0.2-1.0); BLOOD UREA NITROGEN 13 MG/DL (7-18); CALCIUM LEVEL 8.6 MG/DL (8.5-10.1); CARBON DIOXIDE LEVEL 24 MEQ/L (21-32); CHLORIDE LEVEL 106 MEQ/L (98-107); CHOLESTEROL LEVEL 124 MG/DL (<200); CHOLESTEROL RISK RATIO 3.875 (<5); CREATININE FOR GFR 0.93 MG/DL (0.70-1.30); GLOMERULAR FILTRATION RATE > 60.0 (>56); GLUCOSE, FASTING 157 MG/DL (70-100); HDL CHOLESTEROL 32 MG/DL (>40); LDL CHOLESTEROL 70 MG/DL (<100); NON-HDL-C 92 MG/DL; POTASSIUM SERUM 4.2 MEQ/L (3.5-5.1); SODIUM LEVEL 139 MEQ/L (136-145); TOTAL PROTEIN 6.6 GM/DL (6.4-8.2); TRIGLYCERIDES LEVEL 110 MG/DL (<150)
[2020-10-26 15:23] LABS: HEMOGLOBIN A1c 5.7 %
== END ==
LOC: M SFHCADAM 08:29
PROVIDERS: ATTEND Physician Assistant Medical
DX: I82.409 Acute embolism and thrombosis of unspecified deep veins of unspecified lower extremity (principal); E11.9 Type 2 diabetes mellitus without complications; Z79.01 Long term (current) use of anticoagulants

== ENCOUNTER → 2021-05-10 | Outpatient (REF) | payer MEDICARE ==
[~2021-05-10] MED LIST changes: +GABA-282 PO; -GABA-843 PO
[2021-05-10 12:55] LABS: BASO % 0.5 % (0.0-1.0); EOS # 0.1 10^3/uL (0.0-0.5); HEMATOCRIT 41.8 % (42.0-52.0); HEMOGLOBIN 13.8 g/dl (13.5-17.5); LYMPH # 1.8 10^3/uL (1.5-5.0); LYMPH % 23.6 % (24.0-44.0); MEAN CORPUSCULAR HEMOGLOBIN 31.9 pg (27.0-33.0); MEAN CORPUSCULAR VOLUME 96.5 fl (80.0-96.0); MONO # 0.6 10^3/uL (0.0-0.8); MONO % 7.6 % (2.0-8.0); NEUTROPHILS # 5.2 10^3/uL (1.5-8.5); NEUTROPHILS % 66.9 % (36.0-66.0); PLATELET COUNT, AUTOMATED 294 10^3/uL (150-450); RED BLOOD COUNT 4.33 10^6/uL (4.30-6.10); WHITE BLOOD COUNT 7.8 10^3/uL (4.0-10.0)
[2021-05-10 13:14] LABS: HEMOGLOBIN A1c 5.7 %
[2021-05-10 13:45] LABS: ALT/SGPT 40 U/L (12-78); BILIRUBIN,TOTAL 0.4 MG/DL (0.2-1.0); BLOOD UREA NITROGEN 7 MG/DL (7-18); CALCIUM LEVEL 8.3 MG/DL (8.5-10.1); CARBON DIOXIDE LEVEL 28 MEQ/L (21-32); CHLORIDE LEVEL 104 MEQ/L (98-107); CREATININE FOR GFR 0.87 MG/DL (0.70-1.30); GLOMERULAR FILTRATION RATE > 60.0 (>56); GLUCOSE, FASTING 94 MG/DL (70-100); POTASSIUM SERUM 4.7 MEQ/L (3.5-5.1); SODIUM LEVEL 137 MEQ/L (136-145); TRIGLYCERIDES LEVEL 103 MG/DL (<150)
[2021-05-10 13:46] LABS: ALBUMIN 3.4 GM/DL (3.2-5.2); CHOLESTEROL LEVEL 102 MG/DL (<200); HDL CHOLESTEROL 33 MG/DL (>40); LDL CHOLESTEROL 48 MG/DL (<100); NON-HDL-C 69 MG/DL; TOTAL PROTEIN 6.5 GM/DL (6.4-8.2)
== END ==
LOC: M SFHCADAM 07:43
PROVIDERS: ATTEND Physician Assistant
DX: E78.2 Mixed hyperlipidemia (principal); E11.9 Type 2 diabetes mellitus without complications; E66.01 Morbid (severe) obesity due to excess calories; F17.200 Nicotine dependence, unspecified, uncomplicated; I10 Essential (primary) hypertension; I82.409 Acute embolism and thrombosis of unspecified deep veins of unspecified lower extremity; Z79.01 Long term (current) use of anticoagulants
CPT/HCPCS: 80053; 80061; 83036; 84443; 85025; 85610; G0463

== ENCOUNTER 2021-07-02 13:49 | Emergency (ER) | payer MEDICARE ==
[~2021-07-02] VITALS: Ht 180.3 cm; Wt 180.0 kg
[2021-07-02] MEDS ORDERED: EPIP0.3I2 IM (14:40)
[2021-07-02 15:28] VITALS: BP 125/73
== END 2021-07-02 15:33 | disposition home or self-care (01) ==
LOC: M ED 13:49
DX: T63.441A Toxic effect of venom of bees, accidental (unintentional), initial encounter (principal); I10 Essential (primary) hypertension; E78.5 Hyperlipidemia, unspecified; E66.9 Obesity, unspecified; Z88.0 Allergy status to penicillin; Z79.899 Other long term (current) drug therapy; F17.200 Nicotine dependence, unspecified, uncomplicated

== ENCOUNTER → 2021-07-17 | Outpatient (REF) | payer MEDICARE ==
[~2021-07-17] MED LIST changes: +EPIP0.3I2 IM
[2021-07-17 13:02] LABS: INR 2.31; PROTHROMBIN TIME 25.7 SECONDS (12.7-14.5)
== END ==
LOC: M SFHCADAM 09:25
PROVIDERS: ATTEND Physician Assistant Medical
DX: Z79.01 Long term (current) use of anticoagulants (principal)

== ENCOUNTER → 2022-05-15 | Outpatient (REF) | payer MEDICARE ==
[2022-05-15 12:36] LABS: HEMATOCRIT 42.5 % (42.0-52.0); HEMOGLOBIN 14.3 g/dl (13.5-17.5); MEAN CORPUSCULAR HEMOGLOBIN 32.2 pg (27.0-33.0); MEAN CORPUSCULAR HGB CONC 33.6 g/dl (32.0-36.5); MEAN CORPUSCULAR VOLUME 95.7 fl (80.0-96.0); PLATELET COUNT, AUTOMATED 285 10^3/uL (150-450); RED BLOOD COUNT 4.44 10^6/uL (4.30-6.10)
[2022-05-15 13:07] LABS: ALBUMIN 3.6 GM/DL (3.2-5.2); ALT/SGPT 74 U/L (12-78); BILIRUBIN,TOTAL 0.4 MG/DL (0.2-1.0); BLOOD UREA NITROGEN 11 MG/DL (7-18); CALCIUM LEVEL 8.5 MG/DL (8.5-10.1); CARBON DIOXIDE LEVEL 28 MEQ/L (21-32); CHLORIDE LEVEL 108 MEQ/L (98-107); CHOLESTEROL LEVEL 99 MG/DL (<200); CHOLESTEROL RISK RATIO 3.193 (<5); CREATININE FOR GFR 0.98 MG/DL (0.70-1.30); FREE T4 0.97 NG/DL (0.76-1.46); GLOMERULAR FILTRATION RATE > 60.0 (>56); GLUCOSE, FASTING 104 MG/DL (70-100); HDL CHOLESTEROL 31 MG/DL (>40); LDL CHOLESTEROL 53 MG/DL (<100); NON-HDL-C 68 MG/DL; POTASSIUM SERUM 4.2 MEQ/L (3.5-5.1); SODIUM LEVEL 141 MEQ/L (136-145); TOTAL PROTEIN 6.7 GM/DL (6.4-8.2); TRIGLYCERIDES LEVEL 76 MG/DL (<150)
[2022-05-15 13:16] LABS: MALB URINE SIEMENS 9.3 MG/L; MAU/CREAT RATIO 2.9 MCG/MG (0.0-30.0)
[2022-05-15 16:51] LABS: HEMOGLOBIN A1c 5.6 %
== END ==
LOC: M SFHCADAM 08:57
PROVIDERS: ATTEND Family Medicine
DX: I82.409 Acute embolism and thrombosis of unspecified deep veins of unspecified lower extremity (principal); E78.2 Mixed hyperlipidemia; E11.9 Type 2 diabetes mellitus without complications; Z12.5 Encounter for screening for malignant neoplasm of prostate; Z79.01 Long term (current) use of anticoagulants

== ENCOUNTER → 2022-08-21 | Outpatient (REF) | payer MEDICARE ==
[2022-08-21 13:11] LABS: BASO % 0.3 % (0.0-1.0); EOS # 0.2 10^3/uL (0.0-0.5); EOS % 1.7 % (0.0-3.0); HEMATOCRIT 42.4 % (42.0-52.0); HEMOGLOBIN 13.8 g/dl (13.5-17.5); LYMPH # 2.4 10^3/uL (1.5-5.0); LYMPH % 28.3 % (24.0-44.0); MEAN CORPUSCULAR HGB CONC 32.5 g/dl (32.0-36.5); MEAN CORPUSCULAR VOLUME 98.4 fl (80.0-96.0); MONO # 0.6 10^3/uL (0.0-0.8); MONO % 7.3 % (2.0-8.0); NEUTROPHILS # 5.3 10^3/uL (1.5-8.5); NEUTROPHILS % 61.9 % (36.0-66.0); PLATELET COUNT, AUTOMATED 310 10^3/uL (150-450); RED BLOOD COUNT 4.31 10^6/uL (4.30-6.10); WHITE BLOOD COUNT 8.6 10^3/uL (4.0-10.0)
[2022-08-21 14:07] LABS: ALBUMIN 3.5 GM/DL (3.2-5.2); ALT/SGPT 69 U/L (12-78); BILIRUBIN,TOTAL 0.4 MG/DL (0.2-1.0); BLOOD UREA NITROGEN 18 MG/DL (7-18); CALCIUM LEVEL 9.1 MG/DL (8.5-10.1); CARBON DIOXIDE LEVEL 27 MEQ/L (21-32); CHLORIDE LEVEL 105 MEQ/L (98-107); CHOLESTEROL LEVEL 122 MG/DL (<200); CHOLESTEROL RISK RATIO 4.206 (<5); CREATININE FOR GFR 0.97 MG/DL (0.70-1.30); GLOMERULAR FILTRATION RATE > 60.0 (>56); GLUCOSE, FASTING 173 MG/DL (70-100); HDL CHOLESTEROL 29 MG/DL (>40); LDL CHOLESTEROL 66 MG/DL (<100); NON-HDL-C 93 MG/DL; POTASSIUM SERUM 3.5 MEQ/L (3.5-5.1); SODIUM LEVEL 138 MEQ/L (136-145); TOTAL PROTEIN 6.9 GM/DL (6.4-8.2); TRIGLYCERIDES LEVEL 134 MG/DL (<150)
[2022-08-21 14:30] LABS: TOTAL 25(OH) VITAMIN D 15.4 NG/ML (30.0-100.0)
[2022-08-21 15:19] LABS: MALB URINE SIEMENS 6.1 MG/L; MAU/CREAT RATIO 5.2 MCG/MG (0.0-30.0)
== END ==
LOC: M SFHCADAM 07:53
PROVIDERS: ATTEND Physician Assistant Medical
DX: I82.409 Acute embolism and thrombosis of unspecified deep veins of unspecified lower extremity (principal); E66.01 Morbid (severe) obesity due to excess calories; E78.2 Mixed hyperlipidemia; E11.9 Type 2 diabetes mellitus without complications

== ENCOUNTER → 2022-08-21 | Outpatient (CLI) | payer MEDICARE | LOC: M ADAMS 11:41 | PROVIDERS: ATTEND Physician Assistant | DX: Z53.21 Procedure and treatment not carried out due to patient leaving prior to being seen by health care provider (principal) ==

== ENCOUNTER → 2022-12-18 | Outpatient (REF) | payer MEDICARE | LOC: M SFHCADAM 12:30 | PROVIDERS: ATTEND Physician Assistant | DX: J20.9 Acute bronchitis, unspecified (principal) ==

== ENCOUNTER → 2023-03-04 | Outpatient (REF) | payer MEDICARE ==
[2023-03-04 13:18] LABS: BASO % 0.4 % (0.0-1.0); EOS # 0.2 10^3/uL (0.0-0.5); EOS % 1.7 % (0.0-3.0); HEMATOCRIT 43.4 % (42.0-52.0); HEMOGLOBIN 14.3 g/dl (13.5-17.5); LYMPH # 2.5 10^3/uL (1.5-5.0); LYMPH % 25.9 % (24.0-44.0); MEAN CORPUSCULAR HEMOGLOBIN 31.5 pg (27.0-33.0); MEAN CORPUSCULAR HGB CONC 32.9 g/dl (32.0-36.5); MEAN CORPUSCULAR VOLUME 95.6 fl (80.0-96.0); MONO # 0.7 10^3/uL (0.0-0.8); MONO % 7.3 % (2.0-8.0); NEUTROPHILS # 6.1 10^3/uL (1.5-8.5); NEUTROPHILS % 64.3 % (36.0-66.0); PLATELET COUNT, AUTOMATED 292 10^3/uL (150-450); RED BLOOD COUNT 4.54 10^6/uL (4.30-6.10); WHITE BLOOD COUNT 9.5 10^3/uL (4.0-10.0)
[2023-03-04 13:29] LABS: HEMOGLOBIN A1c 5.8 % (4.0-6.0)
[2023-03-04 13:33] LABS: ALBUMIN 3.3 G/DL (3.2-5.2); ALKALINE PHOSPHATASE 127 U/L (46-116); ALT/SGPT 86 U/L (7.0-40); AST/SGOT 41 U/L (<34); BILIRUBIN,TOTAL 0.2 MG/DL (0.3-1.2); BLOOD UREA NITROGEN 14 MG/DL (9-23); CALCIUM LEVEL 8.1 MG/DL (8.5-10.1); CARBON DIOXIDE LEVEL 25 MMOL/L (20-31); CHLORIDE LEVEL 106 MMOL/L (98-107); CHOLESTEROL LEVEL 102 MG/DL (<200); CHOLESTEROL RISK RATIO 3.89 (<5); CREATININE FOR GFR 0.84 MG/DL (0.70-1.30); GLOMERULAR FILTRATION RATE > 60.0 (>56); GLUCOSE, FASTING 105 MG/DL (60-100); HDL CHOLESTEROL 26.2 MG/DL (>40); LDL CHOLESTEROL 56.6 MG/DL (<100); NON-HDL-C 75.8 MG/DL; POTASSIUM SERUM 3.9 MMOL/L (3.5-5.1); SODIUM LEVEL 140 MMOL/L (136-145); TOTAL PROTEIN 6.3 G/DL (5.7-8.2); TRIGLYCERIDES LEVEL 96 MG/DL (<150)
[2023-03-04 13:34] LABS: THYROID STIMULATING HORMONE 2.814 uIU/ML (0.55-4.78); TOTAL 25(OH) VITAMIN D 37.5 NG/ML (20.0-100.0)
== END ==
LOC: M SFHCADAM 07:54
PROVIDERS: ATTEND Physician Assistant Medical
DX: E78.2 Mixed hyperlipidemia (principal); E11.9 Type 2 diabetes mellitus without complications; I10 Essential (primary) hypertension; E66.01 Morbid (severe) obesity due to excess calories; F17.210 Nicotine dependence, cigarettes, uncomplicated; E55.9 Vitamin D deficiency, unspecified

== ENCOUNTER → 2023-03-07 | Outpatient (REF) | payer MEDICARE ==
[2023-03-07 13:18] LABS: CHOLESTEROL LEVEL 101 MG/DL (<200); CHOLESTEROL RISK RATIO 3.76 (<5); HDL CHOLESTEROL 26.8 MG/DL (>40); LDL CHOLESTEROL 53.8 MG/DL (<100); NON-HDL-C 74.2 MG/DL; TRIGLYCERIDES LEVEL 102 MG/DL (<150)
[2023-03-07 13:21] LABS: TOTAL 25(OH) VITAMIN D 33.8 NG/ML (20.0-100.0)
[2023-03-07 13:27] LABS: HEMOGLOBIN A1c 5.7 % (4.0-6.0)
[2023-03-07 13:52] LABS: HEPATITIS C VIRUS ABY INDEX 0.6 INDEX (<0.8)
[2023-03-07 13:53] LABS: HEPATITIS B CORE ANTIBODY IGM NEGATIVE (NEGATIVE)
== END ==
LOC: M SFHCADAM 07:19
PROVIDERS: ATTEND Physician Assistant Medical
DX: R79.89 Other specified abnormal findings of blood chemistry (principal); E55.9 Vitamin D deficiency, unspecified; E11.9 Type 2 diabetes mellitus without complications

== ENCOUNTER → 2023-03-08 | Outpatient (CLI) | payer MEDICARE | LOC: M RAD 08:04 | PROVIDERS: ATTEND Physician Assistant | DX: Z53.9 Procedure and treatment not carried out, unspecified reason (principal) ==

== ENCOUNTER → 2023-04-25 | Outpatient (CLI) | payer MEDICARE | LOC: M PLAIMG 06:47 | PROVIDERS: ATTEND Physician Assistant | DX: M19.011 Primary osteoarthritis, right shoulder (principal); Z53.9 Procedure and treatment not carried out, unspecified reason ==

== ENCOUNTER → 2023-08-20 | Outpatient (REF) | payer MEDICARE ==
[2023-08-20 13:32] LABS: ALBUMIN 3.3 G/DL (3.2-5.2); ALKALINE PHOSPHATASE 115 U/L (46-116); ALT/SGPT 51 U/L (7.0-40); AST/SGOT 18 U/L (<34); BILIRUBIN,TOTAL 0.4 MG/DL (0.3-1.2); BLOOD UREA NITROGEN 10 MG/DL (9-23); CALCIUM LEVEL 8.4 MG/DL (8.5-10.1); CARBON DIOXIDE LEVEL 28 MMOL/L (20-31); CHLORIDE LEVEL 106 MMOL/L (98-107); CHOLESTEROL LEVEL 107 MG/DL (<200); CREATININE FOR GFR 0.83 MG/DL (0.70-1.30); GLOMERULAR FILTRATION RATE > 60.0 (>56); GLUCOSE, FASTING 110 MG/DL (60-100); HDL CHOLESTEROL 29.7 MG/DL (>40); LDL CHOLESTEROL 56.3 MG/DL (<100); NON-HDL-C 77.3 MG/DL; POTASSIUM SERUM 3.9 MMOL/L (3.5-5.1); SODIUM LEVEL 140 MMOL/L (136-145); THYROID STIMULATING HORMONE 2.016 uIU/ML (0.55-4.78); TOTAL PROTEIN 6.2 G/DL (5.7-8.2); TRIGLYCERIDES LEVEL 105 MG/DL (<150)
[2023-08-20 13:42] LABS: HEMOGLOBIN A1c 5.4 % (4.0-6.0)
== END ==
LOC: M SFHCADAM 07:35
PROVIDERS: ATTEND Physician Assistant Medical
DX: E11.9 Type 2 diabetes mellitus without complications (principal); Z79.01 Long term (current) use of anticoagulants

== ENCOUNTER → 2023-11-18 | Outpatient (REF) | payer MEDICARE ==
[2023-11-18 13:48] LABS: APPEARANCE, URINE CLOUDY (CLEAR); BACTERIA, URINE AUTO 1+ (NEGATIVE); BILIRUBIN, URINE AUTO NEGATIVE (NEGATIVE); BLOOD, URINE BLOOD 2+ (NEGATIVE); COLOR, URINE YELLOW (YELLOW); GLUCOSE, URINE (UA) AUTO NEGATIVE (NEGATIVE); KETONE, URINE AUTO NEGATIVE (NEGATIVE); LEUKOCYTE ESTERASE, URINE AUTO 3+ (NEGATIVE); MUCUS, URINE SMALL (NEGATIVE); NITRITE, URINE AUTO NEGATIVE (NEGATIVE); PROTEIN, URINE AUTO 2+ mg/dL (NEGATIVE); RBC, URINE AUTO 181 /HPF (0-3); SPECIFIC GRAVITY URINE AUTO 1.017 (1.002-1.035); SQUAMOUS EPITHELIAL CELL UR AU 0 /HPF (0-6); UROBILINOGEN, URINE AUTO 0.2 mg/dL (0.0-2.0); WBC, URINE AUTO TNTC /HPF (0-3)
== END ==
LOC: M SFHCADAM 08:57
PROVIDERS: ATTEND Physician Assistant Medical
DX: N45.1 Epididymitis (principal)

== ENCOUNTER 2023-12-24 10:10 | Emergency (ER) | payer MEDICARE ==
[~2023-12-24] VITALS: Ht 180.3 cm; Wt 177.3 kg
[2023-12-24] MEDS ORDERED: DOXY100C3 (10:40)
[2023-12-24] MEDS ORDERED: WARF-23 PO (11:23)
[2023-12-24] MEDS: LIDOCAINE W/EPINEPHRINE 1% 20ML VIAL SC ONE (13:14)
[2023-12-24 13:25] LABS: BASO # 0.1 10^3/uL (0.0-0.2); BASO % 0.6 % (0.0-1.0); EOS # 0.1 10^3/uL (0.0-0.5); HEMATOCRIT 40.3 % (42.0-52.0); HEMOGLOBIN 13.8 g/dl (13.5-17.5); LYMPH % 20.9 % (24.0-44.0); MEAN CORPUSCULAR HGB CONC 34.2 g/dl (32.0-36.5); MEAN CORPUSCULAR VOLUME 93.5 fl (80.0-96.0); MONO # 0.6 10^3/uL (0.0-0.8); MONO % 5.7 % (2.0-8.0); NEUTROPHILS % 71.4 % (36.0-66.0); PLATELET COUNT, AUTOMATED 301 10^3/uL (150-450); RED BLOOD COUNT 4.31 10^6/uL (4.30-6.10); WHITE BLOOD COUNT 9.8 10^3/uL (4.0-10.0)
[2023-12-24] MEDS: CLINDAMYCIN 900 MG in IV 1 EA IV ONE (13:35)
[2023-12-24 13:41] VITALS: BP 133/75; TEMP 98.2; O2SAT 97
[2023-12-24 13:56] LABS: BLOOD UREA NITROGEN 14 MG/DL (9-23); CALCIUM LEVEL 8.4 MG/DL (8.5-10.1); CARBON DIOXIDE LEVEL 27 MMOL/L (20-31); CHLORIDE LEVEL 108 MMOL/L (98-107); CREATININE FOR GFR 0.78 MG/DL (0.70-1.30); GLOMERULAR FILTRATION RATE > 60.0 (>56); GLUCOSE, FASTING 94 MG/DL (60-100); POTASSIUM SERUM 4.3 MMOL/L (3.5-5.1); SODIUM LEVEL 139 MMOL/L (136-145)
[2023-12-24] MEDS ORDERED: CLEO300C2 PO (14:02)
== END 2023-12-24 14:39 | disposition home or self-care (01) ==
LOC: M ED 10:10
DX: K13.0 Diseases of lips (principal); E78.5 Hyperlipidemia, unspecified; I10 Essential (primary) hypertension; Z88.0 Allergy status to penicillin; Z86.718 Personal history of other venous thrombosis and embolism; Z79.02 Long term (current) use of antithrombotics/antiplatelets; Z79.01 Long term (current) use of anticoagulants; Z79.4 Long term (current) use of insulin; Z79.899 Other long term (current) drug therapy
CPT/HCPCS: 36415; 80048; 85025; 86140; 87070; 87077; 87186; 87205; 96365; 99284; J0737

== ENCOUNTER → 2023-12-25 | Outpatient (CLI) | payer MEDICARE ==
[~2023-12-25] MED LIST changes: +CLEO300C2 PO; +DOXY100C3; +WARF-23 PO
== END ==
LOC: M RAD 12:12
PROVIDERS: ATTEND Physician Assistant
DX: N50.89 Other specified disorders of the male genital organs (principal); N50.3 Cyst of epididymis; N43.3 Hydrocele, unspecified

== ENCOUNTER → 2024-02-24 | Outpatient (REF) | payer MEDICARE ==
[2024-02-24 14:41] LABS: BASO # 0.1 10^3/uL (0.0-0.2); BASO % 0.6 % (0.0-1.0); EOS # 0.2 10^3/uL (0.0-0.5); EOS % 1.6 % (0.0-3.0); HEMATOCRIT 45.3 % (42.0-52.0); HEMOGLOBIN 15.1 g/dl (13.5-17.5); MEAN CORPUSCULAR HEMOGLOBIN 31.4 pg (27.0-33.0); MEAN CORPUSCULAR HGB CONC 33.3 g/dl (32.0-36.5); MEAN CORPUSCULAR VOLUME 94.2 fl (80.0-96.0); MONO # 0.7 10^3/uL (0.0-0.8); MONO % 7.1 % (2.0-8.0); NEUTROPHILS % 60.3 % (36.0-66.0); PLATELET COUNT, AUTOMATED 287 10^3/uL (150-450); RED BLOOD COUNT 4.81 10^6/uL (4.30-6.10); WHITE BLOOD COUNT 9.9 10^3/uL (4.0-10.0)
[2024-02-24 14:47] LABS: ALBUMIN 3.6 G/DL (3.2-5.2); ALKALINE PHOSPHATASE 138 U/L (46-116); ALT/SGPT 57 U/L (7.0-40); AST/SGOT 23 U/L (<34); BILIRUBIN,TOTAL 0.5 MG/DL (0.3-1.2); BLOOD UREA NITROGEN 8 MG/DL (9-23); CALCIUM LEVEL 9.1 MG/DL (8.3-10.6); CARBON DIOXIDE LEVEL 29 MMOL/L (20-31); CHLORIDE LEVEL 106 MMOL/L (98-107); CHOLESTEROL LEVEL 115 MG/DL (<200); CHOLESTEROL RISK RATIO 3.95 (<5); CREATININE FOR GFR 0.95 MG/DL (0.70-1.30); GLOMERULAR FILTRATION RATE > 60.0 (>49); GLUCOSE, FASTING 100 MG/DL (74-106); HDL CHOLESTEROL 29.1 MG/DL (>40); LDL CHOLESTEROL 59.7 MG/DL (<100); NON-HDL-C 85.9 MG/DL; SODIUM LEVEL 139 MMOL/L (136-145); TOTAL PROTEIN 6.8 G/DL (5.7-8.2); TRIGLYCERIDES LEVEL 131 MG/DL (<150)
[2024-02-24 14:48] LABS: THYROID STIMULATING HORMONE 4.322 uIU/ML (0.55-4.78)
[2024-02-24 14:49] LABS: TOTAL 25(OH) VITAMIN D 38.4 NG/ML (20.0-100.0)
[2024-02-24 15:01] LABS: HEMOGLOBIN A1c 5.7 % (4.0-6.0)
== END ==
LOC: M SFHCADAM 09:25
PROVIDERS: ATTEND Physician Assistant Medical
DX: E66.01 Morbid (severe) obesity due to excess calories (principal); I10 Essential (primary) hypertension; E78.2 Mixed hyperlipidemia; E11.9 Type 2 diabetes mellitus without complications; J45.20 Mild intermittent asthma, uncomplicated; E55.9 Vitamin D deficiency, unspecified

== ENCOUNTER → 2024-08-25 | Outpatient (REF) | payer MEDICARE ==
[~2024-08-25] MED LIST changes: +GABA-1172 PO; +GABA-1490 PO; -GABA-282 PO; -GABA600T4 PO
[2024-08-25 14:16] LABS: ALBUMIN 3.7 G/DL (3.2-5.2); ALKALINE PHOSPHATASE 129 U/L (46-116); ALT/SGPT 44 U/L (7.0-40); AST/SGOT 13 U/L (<34); BASO % 0.3 % (0.0-1.0); BILIRUBIN,TOTAL 0.6 MG/DL (0.3-1.2); BLOOD UREA NITROGEN 9 MG/DL (9-23); CALCIUM LEVEL 9.6 MG/DL (8.3-10.6); CARBON DIOXIDE LEVEL 29 MMOL/L (20-31); CHLORIDE LEVEL 106 MMOL/L (98-107); CHOLESTEROL LEVEL 104 MG/DL (<200); CHOLESTEROL RISK RATIO 3.79 (<5); CREATININE FOR GFR 0.89 MG/DL (0.70-1.30); EOS # 0.1 10^3/uL (0.0-0.5); EOS % 1.2 % (0.0-3.0); GLOMERULAR FILTRATION RATE > 60.0 (>49); GLUCOSE, FASTING 97 MG/DL (74-106); HDL CHOLESTEROL 27.4 MG/DL (>40); HEMATOCRIT 43.2 % (42.0-52.0); HEMOGLOBIN 14.4 g/dl (13.5-17.5); LDL CHOLESTEROL 52.8 MG/DL (<100); LYMPH # 2.5 10^3/uL (1.5-5.0); LYMPH % 25.9 % (24.0-44.0); MEAN CORPUSCULAR HGB CONC 33.3 g/dl (32.0-36.5); MONO # 0.8 10^3/uL (0.0-0.8); MONO % 8.3 % (2.0-8.0); NEUTROPHILS # 6.1 10^3/uL (1.5-8.5); NEUTROPHILS % 64.1 % (36.0-66.0); NON-HDL-C 76.6 MG/DL; PLATELET COUNT, AUTOMATED 270 10^3/uL (150-450); POTASSIUM SERUM 4.3 MMOL/L (3.5-5.1); SODIUM LEVEL 141 MMOL/L (136-145); THYROID STIMULATING HORMONE 3.109 uIU/ML (0.55-4.78); TOTAL PROTEIN 6.8 G/DL (5.7-8.2); TRIGLYCERIDES LEVEL 119 MG/DL (<150); WHITE BLOOD COUNT 9.6 10^3/uL (4.0-10.0)
[2024-08-25 14:54] LABS: HEMOGLOBIN A1c 5.6 % (4.0-6.0)
== END ==
LOC: M SFHCADAM 08:07
PROVIDERS: ATTEND Physician Assistant Medical
DX: E66.01 Morbid (severe) obesity due to excess calories (principal); E78.2 Mixed hyperlipidemia; E11.9 Type 2 diabetes mellitus without complications; F17.210 Nicotine dependence, cigarettes, uncomplicated

== ENCOUNTER → 2025-08-31 | Outpatient (REF) | payer MEDICARE ==
[2025-08-31 13:13] LABS: TOTAL 25(OH) VITAMIN D 28.0 NG/ML (20.0-100.0)
[2025-08-31 13:14] LABS: ALT/SGPT 54.0 U/L (7.0-40); AST/SGOT 24.0 U/L (<34); CALCIUM LEVEL 8.8 MG/DL (8.3-10.6); CARBON DIOXIDE LEVEL 29.0 MMOL/L (20-31); CHLORIDE LEVEL 102.0 MMOL/L (98-107); CHOLESTEROL LEVEL 157.0 MG/DL (<200); CHOLESTEROL RISK RATIO 4.12 (<5); CREATININE FOR GFR 0.96 MG/DL (0.70-1.30); GLOMERULAR FILTRATION RATE 89.9 (>49); LDL CHOLESTEROL 94.3 MG/DL (<100); NON-HDL-C 118.9 MG/DL; POTASSIUM SERUM 4.3 MMOL/L (3.5-5.1); SODIUM LEVEL 142.0 MMOL/L (136-145); TRIGLYCERIDES LEVEL 123.0 MG/DL (<150)
[2025-08-31 17:53] LABS: ESTIMATED AVERAGE GLUCOSE 134.0 MG/DL (60-110)
== END ==
LOC: M SFHCADAM 07:54
PROVIDERS: ATTEND Physician Assistant Medical
DX: E66.01 Morbid (severe) obesity due to excess calories (principal); I10 Essential (primary) hypertension; E78.2 Mixed hyperlipidemia; E11.9 Type 2 diabetes mellitus without complications; E55.9 Vitamin D deficiency, unspecified